=== PATIENT | male | born 2000 | race Caucasian/White ===

== ENCOUNTER 2022-10-02 09:22 | Emergency (ER) | payer MEDICAID, OTHER ==
[~2022-10-02] VITALS: Ht 177.8 cm; Wt 83.9 kg
[2022-10-02 09:23] VITALS: BP 140/87
== END 2022-10-02 12:00 | disposition left against medical advice (07) ==
LOC: M ED 09:22
DX: Z53.21 Procedure and treatment not carried out due to patient leaving prior to being seen by health care provider (principal)